=== PATIENT | female | born 2005 | race Caucasian/White ===

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

== ENCOUNTER 2024-02-29 13:35 | Emergency (ER) | payer OTHER, SELFPAY ==
[2024-02-29 13:45] VITALS: BP 105/52; PULSE 83; RESP 18; TEMP 37.2; O2SAT 99
--- NOTE | 2024-02-29 13:52 | ED.SKABFB ---
HPI - Skin/Abscess/Foreign Bdy General Chief complaint: Skin/Abscess/Foreign Body Stated complaint: left arm bug bite/itchy&swelling Time Seen by Provider: 02/29/24 13:52 Source: patient, RN notes reviewed and old records reviewed Mode of arrival: ambulatory Limitations: no limitations History of Present Illness HPI narrative: 18 year old female presents to [facility] care accompanied by friend with complaints of small raised itchy lesion with surrounding redness to distal left forearm that she noticed today at work. Patient reports that she thinks it is bug bite and is itchy. Patient denies being in [place], no known exposure to poison plants and no one else in family having complaints of similar symptoms, no fevers, chills or body aches. MD complaint: insect bite/sting (with surrounding redness) Location: LUE (distal forearm) Treatments prior to arrival: none Related Data Allergies Allergy/AdvReac Type Severity Reaction Status Date / Time No Known Allergies Allergy Verified 02/29/24 14:09 Review of Systems Review of Systems: CONSTITUTIONAL: Denies fever, chills, or sweats. CARDIOVASCULAR: Denies chest pain, .palpitations, or edema. RESPIRATORY: Denies cough or dyspnea. SKIN: Reports small raised lesion with surrounding redness, thinks is bug bite MUSCULOSKELETAL: Denies joint pain or myalgia. NEUROLOGIC: Denies headache, numbness, or weakness. All systems reviewed & are unremarkable except as noted in HPI and below PMFSH Past Medical History Medical History Acne Encounter for Depo-Provera contraception GERD (gastroesophageal reflux disease) Screen for STD (sexually transmitted disease) Surgical History Surgical History History of tonsillectomy Social History Social History Smoking status: Never smoker Alcohol intake: never Substance use: never Substance use type: does not use Lack of Transportation: No Lack of Food: Never True Current Housing: I Have Housing Concerned About Future Housing: No Difficulty Paying Gas/Electric Bills: No Difficulty Paying for Meds: No Currently Unemployed: No Education: High School Diploma/GED Difficulty w/ Childcare or Family Care: No Living arrangements: other Additional living arrangements comments: single Occupation/Education: occupation 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 There is no relevant family history pertinent to the presenting complaint Exam Narrative: GENERAL: Well-appearing, well-nourished, and in no acute distress. HEAD: Normocephalic, atraumatic. EYES: PERRLA, conjunctivae clear, and EOMI. ENT: Mucous membranes moist. Oropharynx without edema, erythema or lesions. NECK: Supple. No lymphadenopathy CHEST: Clear to auscultation. No respiratory distress.SAO2 99% on room air HEART: Regular rate and rhythm. SKIN: Warm, dry.?small center lesion which appears to be bug bite with surrounding redness total 2cm diameter itchy NEURO:? Alert and oriented x3. PSYCH: Normal mood and affect Course Course Emergency Course: Patient is aware of diagnosis, understands and agrees to treatment plan.? Anticipatory guidance given.? Patient agrees to follow-up as directed and is aware of reasons to seek care at the emergency department. Portions of this record may have been created with voice recognition software Level of Care: Express Care Visit Vital Signs Vital signs: Vital Signs Temperature 37.2 C 02/29/24 13:45 Pulse Rate 83 02/29/24 13:45 Respiratory Rate 18 02/29/24 13:45 Blood
== END 2024-02-29 14:15 | disposition home or self-care (01) ==
PROVIDERS: Emergency Provider Registered Nurse; PCP Family Medicine
DX: S50.862A Insect bite (nonvenomous) of left forearm, initial encounter (principal); W57.XXXA Bitten or stung by nonvenomous insect and other nonvenomous arthropods, initial encounter; K21.9 Gastro-esophageal reflux disease without esophagitis
CPT/HCPCS: 99213; G0463

== ENCOUNTER 2024-08-01 16:49 | Outpatient (CLI) | payer OTHER, SELFPAY ==
[2024-08-01 17:39] LABS: Beta HCG Quantitative < 2.39 mIU/ML
== END 2024-08-01 16:50 | disposition home or self-care (01) ==
LOC: ANHLAB 16:50
PROVIDERS: PCP Family Medicine; Visit Provider Student in an Organized Health Care Education/Training Program
DX: Z30.42 Encounter for surveillance of injectable contraceptive (principal)
CPT/HCPCS: 36415; 84702

== ENCOUNTER 2024-11-25 08:02 | Emergency (ER) | payer OTHER, SELFPAY ==
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
[2024-11-25 08:12] VITALS: BP 101/54; PULSE 76; RESP 20; TEMP 36.8; O2SAT 100
--- NOTE | 2024-11-25 08:29 | ED.GENADULT ---
HPI - General Adult General Chief complaint: Upper Respiratory Infection Stated complaint: head, throat, and stomach hurts Source: patient Mode of arrival: ambulatory Limitations: no limitations History of Present Illness HPI narrative: Patient presents for evaluation of sick symptoms since yesterday. Symptoms include sore throat, headache, and nausea. No fever, chills, cough, shortness of breath, vomiting, diarrhea. No recent sick contacts to her knowledge. She tried taking ibuprofen for her symptoms. She does not smoke. Related Data Allergies Allergy/AdvReac Type Severity Reaction Status Date / Time No Known Allergies Allergy Verified 02/29/24 14:09 Review of Systems Review of Systems: CONSTITUTIONAL: Denies fever, chills, or sweats. EYES: Denies visual changes, redness, or discharge. ENT: Reports sore throat. Denies rhinorrhea, congestion, or otalgia. CARDIOVASCULAR: Denies chest pain, palpitations, or edema. RESPIRATORY: Denies cough or dyspnea. GASTROINTESTINAL: Reports nausea. Denies abdominal pain, vomiting, or diarrhea. GENITOURINARY: Denies dysuria or hematuria. SKIN: Denies rash or itching. MUSCULOSKELETAL: Denies back pain, joint pain, or myalgia. NEUROLOGIC: Reports headache. Denies numbness, dizziness, or weakness. PSYCHIATRIC: Denies anxiety or depression. [facility] Past Medical History Medical History Encounter for Depo-Provera contraception Screen for STD (sexually transmitted disease) GERD (gastroesophageal reflux disease) Acne Surgical History Surgical History History of tonsillectomy Family History Family History (Updated 11/25/24 @ 08:30 by EMILI Mackey, VENKATESH) Mother Family history non-contributory Social History Social History Smoking status: Former smoker Alcohol intake: never Substance use: never Substance use type: does not use Lack of Transportation: No Lack of Food: Never True Current Housing: I Have Housing Concerned About Future Housing: No Difficulty Paying Gas/Electric Bills: No Difficulty Paying for Meds: No Currently Unemployed: No Education: High School Diploma/GED Difficulty w/ Childcare or Family Care: No Living arrangements: other Additional living arrangements comments: single Occupation/Education: occupation 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 HEAD: Normocephalic, atraumatic. EYES: PERRLA and EOMI. ENT: Nares clear, no rhinorrhea or epistaxis. Mucous membranes moist. Oropharynx without tonsillar hypertrophy exudate or other lesions. Bilateral TMs pearly becerra nonbulging NECK: Supple. No adenopathy or masses. No carotid bruits or JVD CHEST: Clear to auscultation. No respiratory distress. No wheezes rales or rhonchi HEART: Regular rate and rhythm. No murmur heard. Normal peripheral pulses. ABDOMEN: Soft, nontender, nondistended, normal active bowel sounds. EXTREMITIES: Normal range of motion. No edema. SKIN: Warm, dry, no rash. NEURO: No focal deficits. Alert and oriented x3. PSYCH: Normal mood and affect. Course Course Emergency Course: This is a 19-year-old female who presented for evaluation of sick symptoms. Strep, COVID, influenza were all negative. Exam is consistent with acute viral syndrome. Increase hydration. Qdea-gxk-[id number] agents for symptom management. She declined a prescription for antiemetics. She should follow-up with her primary care provider and go to the ER for worsening symptoms. Patient in agreement with plan of care Level of Care: Express Care Visit Vital Signs Vital signs: Vital Signs Temperature 36.8 C 11/25/24 08:12 Pulse Rate 76 11/25/24 08:12 Respiratory Rate 20 11/25/24 08:12 Blood Pressure 101/54 L 11/25/24 08:12 Pulse Oximetry 100 11/25/24 08:12 Oxygen Delivery Room Air 11/25/24 08:12 Temperature 36.8 C 11/25/24 08:12 Pulse Rate 76 11/25/24 08:12 Respiratory Rate 20 11/25/24 08:12 Blood Pressure 101/54 L 11/25/24 08:12 Pulse Oximetry 100 11/25/24 08:12 Oxygen Delivery Room Air 11/25/24 08:12 Medical Decision Making Vital Signs Vital Signs: Vital Signs Temperature 36.8 C 11/25/24 08:12 Pulse Rate 76 11/25/24 08:12 Respiratory Rate 20 11/25/24 08:12 Blood Pressure 101/54 L 11/25/24 08:12 Pulse Oximetry 100 11/25/24 08:12 Oxygen Delivery Room Air 11/25/24 08:12 Temperature 36.8 C 11/25/24 08:12 Pulse Rate 76 11/25/24 08:12 Respiratory Rate 20 11/25/24 08:12 Blood Pressure 101/54 L 11/25/24 08:12 Pulse Oximetry 100 11/25/24 08:12 Oxygen Delivery Room Air 11/25/24 08:12 Lab Data Labs: Lab Results 11/25/24 Range/Units 08:20 POC Influenza A Ag Negative (Negative) POC Influenza B Ag Negative (Negative) POC SARS CoV-2 Ag Negative (Negative) POC Grp A Strep Screen Negative (Negative) Discharge Plan Discharge Clinical Impression: Acute viral syndrome Patient Disposition: Home, Self-Care Condition: Stable Instructions: Antibiotic Form, Viral Syndrome (ED) Patient Language: Surinamese Prescriptions: No Action medroxyprogesterone [Depo-Provera] 150 mg/mL syringe 150 mg IM [id number] Qty: 1 0RF Follow-up/Referrals: Trever,Meek Moscoso MD [Primary Care Provider] - Time of Disposition: 08:41
[2024-11-25 08:37] LABS: EDINFLUASCREEN Negative (Negative); EDINFLUBSCREEN Negative (Negative); EDSTREPNEGPOS1 Negative (Negative)
[2024-11-25 08:38] LABS: EDCOVIDSCREEN Negative (Negative)
== END 2024-11-25 08:46 | disposition home or self-care (01) ==
PROVIDERS: Emergency Provider Nurse Practitioner; PCP Family Medicine
DX: B34.9 Viral infection, unspecified (principal); Z87.891 Personal history of nicotine dependence; Z20.822 Contact with and (suspected) exposure to COVID-19
CPT/HCPCS: 87081; 87426; 87804; 87880; 99213; G0463

== ENCOUNTER 2024-12-08 17:12 | Emergency (ER) | payer OTHER, SELFPAY ==
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
--- OUTSIDE RECORDS SUMMARY | 2024-12-08 17:14 | XMS_ITS | Clinical Summary ---
Author Organization [facility] Address [address] [place] [address] Care Team Providers Care Driver License Technician Name Role Phone No, Physician Unavailable Meek Perera MD Primary Care Provider [phone] Allergies No known active allergies Medications hydrOXYzine [...] by mouth daily 90 tablet 1 01/26/2024 5 Active Active Problems Problem Noted Date Diagnosed [...] F/u 1 month. I checked their [place] AFTER SCHOOL PROGRAM ASSISTANT sheet, and it was consistent with [...] Sep 2012 (Dr. Franz) and 11/24/12, 01/17/14 ([facility]) no snoring, generally restful sleep [...] 12/30/2023 Assessment & Plan (11/29/2023 12:27 PM OPHTHALMOLOGIST RETINA SPECIALIST): Ronda Maruicio an Marvin wrap applied. I told her [...] Type Department Care Team Description 09/19/2024 Telephone [facility] Medical Group Primary Care at [address] [address] Meek Perera MD Billing Question [...] on file Legal Sex Female 1:23 AM OPHTHALMOLOGIST RETINA SPECIALIST Gender Identity Not on file Sexual Orientation [...] CDT Respiratory Rate 16 11/25/2023 10:02 PM OPHTHALMOLOGIST RETINA SPECIALIST Oxygen Saturation 98% 01/26/2024 8:26 AM CDT [...] 05/03/2014 Meningococcal Vaccine Completed 12/06/2020, 015 Insurance [facility] [place] [address] [facility] [place] [address] [facility] [address] [place] [address] WORKERS COMPENSATION GENERIC Member Subscriber Plan / Payer (Ef fective 2023-Present) Name:Margoth Rice Relation to Subscriber:Employee Name:KAYLEEN (Home) Address: [address] [place] [address] Payer ID:[id number] Group ID:Not on file Type:WORKERS COMPENSATION Address: [address], [place] [id number] Care Teams Driver License Technician Relationship Specialty Start Date End Date Meek Perera MD [address] [address] PCP - General Family Medicine 12/16/22 No, Physician 09/07/19
--- OUTSIDE RECORDS SUMMARY | 2024-12-08 17:14 | XMS_ITS | CONTINUITY OF CARE DOCUMENT ---
Author Name raad jolantaceci Address Unknown Organization [facility] Address [address] [place] [address] Phone [phone] Care Team Providers Care Horse Groomer Name Role Phone Dontrell COX, Vel Unavailable [phone] DARIELA COX, PATRICIA Unavailable PATRICIA LYLE MD Unavailable [phone] PROBLEMS Condition Status Date Provider Notes covid active Vel Jon MD Screening active Vel Jon MD PFO;SMALL active Vel Jon MD FOUND ON SCREEN ECHO, NORMAL CORS ON ECHO CHILD Chest pain-type to be determined active Vel Jon MD Palpitations active Loreta Ventimiglia 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 ENCOUNTERS Date Type Provider Location Encounter Diag nosis - In-person encounter Office Visit Vel Jon MD [place] [facility] - In-person encounter Office Visit Vel Jon MD [place] [facility] Palpitations - In-person encounter Office Visit Vel Jon MD [place] [facility] covid 19creeningPFO; SMALLChest pain-type to be determined VITAL SIGNS Date Observation Value Provider Body Mass Index (Ratio) 24.14 kg/m2 Rusty Jon MD blood pressure, diastolic 78 mm[Hg] Dee Rosas blood pressure, systolic 104 mm[Hg] Karen Rosas oxygen saturation, oximetry 99 % [facility] pulse rate 68 /min [facility] respiratory rate E&M 12 /min [facility] weight E&M 132 [lb_av] [facility] height E&M 62 [in_i] [facility] blood pressure, cuff size regular [facility] Body Mass Index (Ratio) 24.14 kg/m2 Rusty Jon MD blood pressure, diastolic 73 mm[Hg] [facility] blood pressure, systolic 107 mm[Hg] [facility] oxygen saturation, oximetry 99 % [facility] pulse rate 68 /min [facility] respiratory rate E&M 12 /min [facility] weight E&M 132 [lb_av] [facility] height E&M 62 [in_i] [facility] blood pressure, cuff size regular [facility] weight E&M 134 [lb_av] Joelle Kunz Body Mass Index (Ratio) 24.51 kg/m2 Rusty Jon MD pulse rate 82 /min Michaela Head blood pressure, cuff size regular Keith Head blood pressure, diastolic 69 mm[Hg] Keith bitha Head blood pressure, systolic 96 mm[Hg] Omreo ithroxanne Head oxygen saturation, oximetry 98 % Michaela Head respiratory rate E&M 16 /min Michaela [facility] weight E&M 134 [lb_av] Michaela Head height E&M 62 [in_i] Michaela Head ALLERGIES No Known Drug Allergies HISTORY OF MEDICATION USE Medication Status Instructions Dates Provider Indications Com ments naproxen 500 mg tablet completed TAKE 1 TABLET BY MOUTH TWICE DAILY WITH FOOD - [facility] cyclobenzaprine 10 mg tablet completed Take 1 tablet by mouth once a day - [facility] SOCIAL HISTORY Date Observation Value Provider personal history of marijuana use no Loreta Ventimiglia [facility] drug use no Loreta Ventimig jonah [facility] alcohol use no Loreta Ventimig jonah [facility] cigarette use yes Loreta Ventimi glia [facility] smoking status Former smoker Loreta Venti miglia [facility] drug use no Loreta Ventimig jonah [facility] personal history of marijuana use no Loreta Ventimiglia [facility] alcohol use no Loreta Ventimig jonah [facility] cigarette use yes Loreta Ventimi glia [facility] smoking status Former smoker Loreta Venti miglia [facility] INSURANCE PROVIDERS Payer name Policy type / Coverage type [facility] ID 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 Loreta Cashglia [facility] Cardiology:no arrhythmia on tele monitor [facility] Cardiology:continues to have atypical type chest pain and SOB E quivocal stress test and stress echo ordered but denied by insurance w ill do 2D echo to look for any structural heart disease Will do CXR to look for any acute cardiopulmonary process w ill do labs to r/o underlying source for symptoms [facility] Cardiology:noted on pediatric echo reported as normal for age. [facility] Cardiology:associate d with chest pain and SOB w ill do tele monitor to r/o arrhythmia Loretaajith Castrejonglia [facility] Cardiology:Patient c ontinues to have reports of chest pain and SOB of unclear etiology S he reports associated palpitations as well S he had abnormal treadmill stress test but reported echo in 2019 that suggested a normal coronary anatomy g lucy that will plan for stress echo to r/o ischemia. w ill update labs to r/o anemia, vitamin deficiency or electrolyte disturbance contributing W ill do echo to look for any structural heart disease Loreta Sherifluioneydaquincy 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 Cardiology Vel Jon MD Cardiology Vel Jon MD Cardiology Vel Jon MD Cardiology:NEG EGFR N EG CHOL Vel Jon MD Date Name Vitamin D, 25-Hydrox y VITAMIN B12 Microalb/Creatinine Urine, Random HEMOGLOBIN A1c TSH, free T4, total T3 PROBNP, N TERMINAL IRON AND TOTAL IRON BINDING CAPACITY FERRITIN CBC (INCLUDES DIFF/P LT) COMPREHENSIVE METABO LIC PANEL, W/EGFR Lipoprotein (a) CXR- PA/Lat Complete Echo Microalb/Creatinine Urine, Random HEMOGLOBIN A1c Vitamin D, 25-Hydrox y VITAMIN B12 TSH, free T4, total T3 PROBNP, N TERMINAL IRON AND TOTAL IRON BINDING CAPACITY FERRITIN CBC (INCLUDES DIFF/P LT) Lipoprotein (a) CRP, high sensitivit y COMPREHENSIVE METABO LIC PANEL, W/EGFR LIPID PANEL Monitor - Telemetry (Mobile Cardiac) Stress Echo Complete Echo CXR- PA/Lat Stress Routine VITAMIN B12 Vitamin D, 25-Hydrox y IRON AND TOTAL IRON BINDING CAPACITY FERRITIN CBC (INCLUDES DIFF/P LT) Microalb/Creatinine Urine, Random CRP, high sensitivit y Lipoprotein (a) HISTORY OF PROCEDURES Procedure Date Procedure Name Provider Procedure Notes S tatus EKG Vel Jon MD complete d
--- OUTSIDE RECORDS SUMMARY | 2024-12-08 17:17 | XMS_ITS | CONTINUITY OF CARE DOCUMENT ---
Author Name raad jolantaceci Address Unknown Organization [facility] Address [address] [place] [address] Phone [phone] Care Team Providers Care Tissue Packer Name Role Phone Dontrell COX, Vel Unavailable DARIELA COX, PATRICIA Unavailable [phone] PATRICIA LYLE MD Unavailable PROBLEMS Condition Status Date Provider Notes covid active Vel Jon MD Screening active Vel Jon MD PFO;SMALL active Vel Jon MD FOUND ON SCREEN ECHO, NORMAL CORS ON ECHO CHILD Chest pain-type to be determined active Vel Jon MD Palpitations active Loreta 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 Date Type Provider Location Encounter Diag nosis - In-person encounter Office Visit Vel Jon MD [place] [facility] - In-person encounter Office Visit Vel Jon MD [place] [facility] Palpitations - In-person encounter Office Visit Vel Jon MD [place] [facility] covid 19creeningPFO; SMALLChest pain-type to be determined VITAL SIGNS Date Observation Value Provider Body Mass Index (Ratio) 24.14 kg/m2 Rusty Jon MD blood pressure, diastolic 78 mm[Hg] Dee Rosas blood pressure, systolic 104 mm[Hg] Karen Rosas oxygen saturation, oximetry 99 % [facility] pulse rate 68 /min [facility] respiratory rate E&M 12 /min [facility] weight E&M 132 [lb_av] [facility] height E&M 62 [in_i] [facility] blood pressure, cuff size regular [facility] Body Mass Index (Ratio) 24.14 kg/m2 Rusty Jon MD blood pressure, diastolic 73 mm[Hg] [facility] blood pressure, systolic 107 mm[Hg] [facility] oxygen saturation, oximetry 99 % [facility] pulse rate 68 /min [facility] respiratory rate E&M 12 /min [facility] weight E&M 132 [lb_av] [facility] height E&M 62 [in_i] [facility] blood pressure, cuff size regular [facility] weight E&M 134 [lb_av] Joelle Kunz Body Mass Index (Ratio) 24.51 kg/m2 Rusty Jon MD pulse rate 82 /min Michaela Head blood pressure, cuff size regular Keith Head blood pressure, diastolic 69 mm[Hg] Keith bitha Head blood pressure, systolic 96 mm[Hg] Omero ithroxanne Head oxygen saturation, oximetry 98 % Michaela [facility] respiratory rate E&M 16 /min [facility] weight E&M 134 [lb_av] Michaela Head height E&M 62 [in_i] Michaela Head ALLERGIES No Known Drug Allergies HISTORY OF MEDICATION USE Medication Status Instructions Dates Provider Indications Com ments naproxen 500 mg tablet completed TAKE 1 TABLET BY MOUTH TWICE DAILY WITH FOOD - [facility] cyclobenzaprine 10 mg tablet completed Take 1 tablet by mouth once a day - [facility] SOCIAL HISTORY Date Observation Value Provider personal history of marijuana use no Loreta Ventimiglia [facility] drug use no Loreta Ventimig jonah [facility] alcohol use no Loreta Ventimig jonah [facility] cigarette use yes Loreta Ventimi glia [facility] smoking status Former smoker Loreta Venti miglia [facility] drug use no Loreta Ventimig jonah [facility] personal history of marijuana use no Loreta Ventimiglia [facility] alcohol use no Loreta Ventimig jonah [facility] cigarette use yes Loreta Ventimi glia [facility] smoking status Former smoker Loreta Venti miglia [facility] INSURANCE PROVIDERS Payer name Policy type / Coverage type [facility] ID Verific[employer] [id number] ADVANCE DIRECTIVES Name Date DISCUSSED - NO DECISION MADE TREATMENT PLAN Date Name Performer Cardiology: n oted on pediatric echo reported as normal for age. Loreta Cashglia [facility] Cardiology:no arrhythmia on tele monitor [facility] Cardiology:continues to have atypical type chest pain and SOB E quivocal stress test and stress echo ordered but denied by insurance w ill do 2D echo to look for any structural heart disease Will do CXR to look for any acute cardiopulmonary process w ill do labs to r/o underlying source for symptoms [facility] Cardiology:noted on pediatric echo reported as normal for age. [facility] Cardiology:associate d with chest pain and SOB w ill do tele monitor to r/o arrhythmia Loretaajith Castrejonglia [facility] Cardiology:Patient c ontinues to have [...] for any structural heart disease Loreta Sherifluioneydaquincy CORPORATE MANAGER Cardiology Vel Jon MD Cardiology Vel Jon [...]
[2024-12-08 17:18] VITALS: BP 109/56; PULSE 81; RESP 18; TEMP 36.6; O2SAT 100
--- NOTE | 2024-12-08 17:21 | ED_ITS ---
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 Was unable to get wound to stop bleeding. Happened approx. 30 minutes prior to arrival. CMS intact. All systems reviewed and negative except as noted above. Related Data Allergies Allergy/AdvReac Type Severity Reaction Status Date / Time No Known Allergies Allergy Verified 02/29/24 14:09 Review of Systems Review of Systems: CONSTITUTIONAL: Denies fever, chills, or sweats. EYES: Denies visual changes, redness, or discharge. ENT: Denies rhinorrhea, congestion, sore throat, or otalgia. CARDIOVASCULAR: Denies chest pain, palpitations, or edema. RESPIRATORY: Denies cough or dyspnea. GASTROINTESTINAL: Denies abdominal pain, nausea, vomiting, or diarrhea. GENITOURINARY: Denies dysuria or hematuria. SKIN: Denies rash or itching. reports skin avulsion to left thumb. MUSCULOSKELETAL: Denies back pain, joint pain, or myalgia. NEUROLOGIC: Denies headache, numbness, or weakness. PSYCHIATRIC: Denies anxiety or depression. All other systems reviewed are negative, except as documented in HPI. [facility] Past Medical History Medical History Encounter for Depo-Provera contraception Screen for STD (sexually transmitted disease) GERD (gastroesophageal reflux disease) Acne Surgical History Surgical History History of tonsillectomy Family History Family History (Updated 11/25/24 @ 08:30 by EMILI Mackey, VENKATESH) Mother Family history non-contributory Social History Social History Smoking status: Former smoker Alcohol intake: never Substance use: never Substance use type: does not use Lack of Transportation: No Lack of Food: Never True Current Housing: I Have Housing Concerned About Future Housing: No Difficulty Paying Gas/Electric Bills: No Difficulty Paying for Meds: No Currently Unemployed: No Education: High School Diploma/GED Difficulty w/ Childcare or Family Care: No Living arrangements: other Additional living arrangements comments: single Occupation/Education: occupation 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 There is no relevant family history pertinent to the presenting complaint. Exam Narrative: GENERAL: This is a well-nourished, well-developed patient, in no apparent distress. HEAD: normocephalic, atraumatic. EYES: PERRL. Sclera clear/white. Vision is grossly intact. EARS: External ears normal NOSE: External nose normal NECK: Neck supple, non-tender without lymphadenopathy, masses or thyromegaly. CARDIOVASCULAR: Regular rate and rhythm without murmurs, gallops, or rubs. RESPIRATORY: Clear to auscultation. Breath sounds equal bilaterally. No wheezes, rales, or rhonchi. SKIN: warm, Dry, intact with no suspicious lesions or rash, good texture and turgor. skin avulsion to L thumb, less that 1 cm diameter. small amount of active bleeding. NEURO: awake, alert, and oriented to person, place and time. There were no o bvious focal neurologic abnormalities. EXTREMITIES: No joint tenderness, effusion, or edema noted. Course Course Level of Care: Express Care Visit Vital Signs Vital signs: Vital Signs Temperature 36.6 C 12/08/24 17:18 Pulse Rate 81 12/08/24 17:18 Respiratory Rate 18 12/08/24 17:18 Blood Pressure 109/56 L 12/08/24 17:18 Pulse Oximetry 100 12/08/24 17:18 Oxygen Delivery Room Air 12/08/24 17:18 Temperature 36.6 C 12/08/24 17:18 Pulse Rate 81 12/08/24 17:18 Respiratory Rate 18 12/08/24 17:18 Blood Pressure 109/56 L 12/08/24 17:18 Pulse Oximetry 100 12/08/24 17:18 Oxygen Delivery Room Air 12/08/24 17:18 Reviewed Procedures Other Procedure Procedure 1: Other Procedure: surgicel applied to skin avulsion of L thumb. tube gauze dressing placed. MDM - Wound/Laceration MDM Narrative Medical decision making narrative: Please be advised this is a medical document. It is intended for [id number] communication. It is written in medical language and may contain unfamiliar abbreviations or verbiage. Medical documents are intended to carry relevant information, facts as evident, and the clinical opinion of the practitioner at the time of the encounter. This report may have been done utilizing a voice recognition system. Attempts have been made to correct errors. However, there may be uncorrected grammatical, spelling, and recognition errors present. The file time of this note does not necessarily represent the time of service. Discharge Plan Discharge Clinical Impression: Avulsion of skin of left thumb Qualifiers: Encounter type: initial encounter Qualified Code(s): S61.002A - Unspecified open wound of left thumb without damage to nail, initial encounter Patient Disposition: Home, Self-Care Condition: Stable Instructions: Skin Avulsion (ED) Additional Instructions: Remove medicated gauze in 24 to 48 hours by running under warm water. Keep clean and dry. See your doctor as needed. Patient Language: Surinamese Prescriptions: No Action medroxyprogesterone [Depo-Provera] 150 mg/mL syringe 150 mg IM [id number] Qty: 1 0RF Follow-up/Referrals: Trever,Meek Moscoso MD [Primary Care Provider] - Stand Alone Forms: Work/School Release IP Time of Disposition: 17:43
== END 2024-12-08 17:51 | disposition home or self-care (01) ==
PROVIDERS: Emergency Provider Nurse Practitioner Family; PCP Family Medicine
DX: S61.002A Unspecified open wound of left thumb without damage to nail, initial encounter (principal); Z87.891 Personal history of nicotine dependence; W27.4XXA Contact with kitchen utensil, initial encounter
CPT/HCPCS: 99212; G0463

== ENCOUNTER 2025-03-06 11:41 | Emergency (ER) | payer OTHER, SELFPAY ==
--- NOTE | ~2025-03-06 | XR_ITS ---
EXAMINATION: XR chest 2V 03/06/2025 13:15 INDICATION: Shortness of breath and chest pain PROCEDURE: 2 view chest COMPARISON: 12/15/2023 FINDINGS: The lungs are clear. The cardiomediastinal silhouette is within normal limits. There are no pleural effusions. There is no pneumothorax suspected. IMPRESSION: 1: NO ACUTE CARDIOPULMONARY DISEASE. Reviewed, dictated and finalized at location A.
[2025-03-06 11:45] VITALS: BP 119/79; PULSE 78; RESP 18; TEMP 37.1; O2SAT 95
--- OUTSIDE RECORDS SUMMARY | 2025-03-06 11:45 | XMS_ITS | Referral Summary ---
Author Organization [facility] Address [address] [place] [address] Care Team Providers Care Adult Basic Education Instructor Name Role Phone No, Physician Unavailable Meek Perera MD Primary Care Provider Encounters Date Type Department Care Team Description 12/28/2024 Results Follow-Up [facility] Medical [facility] Primary Care at [address] [address] Meek Perera MD XR Chest Pa Lateral 2 Views 12/28/2024 Telephone [facility] Primary Care at [address] [address] Meek Perera MD Pa for Methylphenidate 18mg ER 12/28/2024 10:30 AM CDT Ancillary Procedure [facility] Imaging at [address] [address] 12/28/2024 9:45 AM CDT Office Visit [facility] Primary Care at [address] [address] Meek Perera MD CHASE (generalized anxiety disorder) (Primary Dx); Encounter for administration of vaccine; Chronic pain of scapula; Attention deficit hyperactivity disorder (ADHD), predominantly inattentive type; Winging of scapula; Other chest pain from Last 3 Months Allergies No known active allergies Medications sertraline (ZOLOFT) 50 mg tabletIndications: Anxiety with Depression,General ized Anxiety Disorder Take 0.5 tablets (25 mg total) by mouth daily for 7 days, THEN 1 tablet (50 mg total) daily. 34 tablet 5 Active hydrOXYzine (ATARAX) 25 mg tabletIndications: anxiety Take 1 tablet (25 mg total) by mouth 3 (three) times a day as needed for anxiety 30 tablet 1 5 Active methylphenidate ER (Concerta) 18 mg CR tabletIndications: Attention-Deficit Hyperactivity Disorder Take 1 tablet (18 mg total) by mouth every morning 30 tablet 5 Active Active Problems Problem Noted Date Diagnosed Date Winging of scapula 12/28/2024 Palpitations 08/16/2024 Chest pain 07/06/2024 Influenza due to unidentifie d influenza virus with other respiratory manifestations 07/06/2024 Presence of other cardiac implants and grafts Overview (12/28/2024): FOUND ON SCREEN ECHO, NORMAL CORS ON ECHO CHILD Attention deficit hyperactiv ity disorder (ADHD), predominantly [...] sertraline. F/u 1 month. I checked their [place] ANCILLARY SPECIALIST sheet, and it was consistent with prescribed [...] Sep 2012 (Dr. Franz) and 11/24/12, 01/17/14 (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 I [...] Intramuscular 08/17/2018,08/12/2016 Influenza, Split 08/18/2010,07/03/2009, 8 Influenza, Trivalent, Preser vative Free, Intramuscular 12/28/2024 Influenza, Unspecified 12/30/2023(Deferr ed: Patient Refused),11/29/2023(Deferred: Patient Refused),10/05/2023(Deferred: Patient Refused),10/05/2022(Deferred: Patient Refused),10/04/2022(Deferred: Patient Refused),10/04/2022(Deferred: Patient Refused),10/04/2021(Deferred: Patient [...] points, staff should administer the PHQ-9) 0 12/28/2024 Personal Safety Answer Date Recorded Have you [...] on file Legal Sex Female 1:23 AM STOREROOM SUPERVISOR Gender Identity Not on file Sexual Orientation Not on file 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, 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 Not on file Not on fi le Last Filed Vital Signs Vital Sign Reading Time Taken Comments Blood Pressure 106/64 12/28/2024 9:50 AM CDT Pulse 67 12/28/2024 9:50 AM CDT Temperature 37.2 C (98.9 F) 12/28/2024 9:50 AM CDT Respiratory Rate 16 12/28/2024 9:50 AM CDT Oxygen Saturation 98% 12/28/2024 9:50 AM CDT Inhaled Oxygen Concentration - - Weight 58.1 kg (128 lb) 12/28/2024 9:50 AM CDT Height 157.5 cm (5' 2) 12/28/2024 9:50 AM CDT Body Mass Index 23.41 12/28/2024 9:50 AM CDT Plan of Treatment Not on file Procedures Procedure Name Priority Date/Time Associated Diagnosis Comments XR CHEST PA LATERAL 2 VIEWS Routine 12/28/2024 10:41 AM CDT Chronic pain of scapula Other chest pain from Last 3 Months Results * XR Chest Pa Lateral 2 Views (12/28/2024 10:41 AM CDT) Anatomical Region Laterality Modality Body, Chest N/A Digital Radiogra phy 12/28/2024 10:4 4 AM CDT Narrative 12/28/2024 10:46 AM CDT EXAM DESCRIPTION: XR CHEST PA LATERAL 2 VIEWS REASON FOR STUDY: Pt complains of chronic right scapular pain, worsening over time. No surgery to heart, lungs, or chest. Non-smoker TECHNIQUE: 2 radiographic view(s) of the chest. COMPARISON: 06/06/2022 FINDINGS: LUNGS: There is minimal scarring within the right upper lobe. No airspace consolidation is noted. No effusions are noted. HEART/MEDIASTINUM: Cardiac silhouette normal in size. Mediastinal and hilar contours appear normal. LINES/TUBES: None. BONES: No acute osseous abnormality. IMPRESSION: 1. No acute disease. THIS IS AN ELECTRONICALLY VERIFIED FINAL REPORT 12/28/2024 10:46 AM - Electronically signed by Stoney Carr M.D. SS T: Report ID: [id number] Reading Location: [id number] Procedure Note Stoney Carr MD - 12/28/2024 EXAM DESCRIPTION: XR CHEST PA LATERAL 2 VIEWS REASON FOR STUDY: Pt complains of chronic right scapular pain, worsening over time. Nosurgery to heart, lungs, or chest. Non-smoker TECHNIQUE: 2 radiographic view(s) of the chest. COMPARISON: 06/06/2022 FINDINGS: LUNGS: There is minimal scarring within the right upper lobe.No airspace consolidation is noted. No effusions are noted. HEART/MEDIASTINUM: Cardiac silhouette normal in size. Mediastinal andhilar contours appear normal. LINES/TUBES: None. BONES: No acute osseous abnormality. IMPRESSION: 1. No acute disease. THIS IS AN ELECTRONICALLY VERIFIED FINAL REPORT 12/28/2024 10:46 AM - Electronically signed by Stoney Carr M.D. SS T: Report ID: [id number] Reading Location: [place] [address] Meek Perera MD IMG XR PROCEDURES Final Res ult from Last 3 Months Insurance [facility] [place] [address] [facility] [address] [place] [address] [facility] [address] [place] [address] [facility] [employer] [place] [address] WORKERS COMPENSATION GENERIC Member Subscriber Plan / Payer (Ef fective 2023-Present) Name:Margoth Rice Relation to Subscriber:Employee Name:KAYLEEN (Home) Address: [address] [place] [address] Payer ID:[id number] Group ID:Not on file Type:WORKERS COMPENSATION Address: [address], [place] [id number] Care Teams Adult Basic Education Instructor Relationship Specialty Start Date End Date Meek Perera MD [address] [place] [id number] PCP - General Family Medicine 12/16/22 No, Physician 09/07/19
--- OUTSIDE RECORDS SUMMARY | 2025-03-06 11:45 | XMS_ITS | CONTINUITY OF CARE DOCUMENT ---
Author Name raad shankar Address Unknown Organization [facility] Address [address] [place] [address] Phone [phone] Care Team Providers Care Club Former Name Role Phone Dontrell COX, Vel Unavailable [phone] DARIELA COX, PATRICIA Unavailable PATRICIA LYLE MD Unavailable PROBLEMS Condition Status Date Provider Notes covid active Vel Jon MD Screening active Vel Jon MD PFO;SMALL active Vel Jon MD FOUND ON SCREEN ECHO, NORMAL CORS ON ECHO CHILD Chest pain-type to be determined active Vel Jon MD Palpitations active Loreta Ventimiglia 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 TRADES 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 ENCOUNTERS Date Type Provider Location Encounter Diag nosis - In-person encounter Office Visit Vel Jon MD [place] [facility] - In-person encounter Office Visit Vel Jon MD [place] [facility] Palpitations - In-person encounter Office Visit Vel Jon MD [place] [facility] covid 19creeningPFO; SMALLChest pain-type to be determined VITAL SIGNS Date Observation Value Provider Body Mass Index (Ratio) 24.14 kg/m2 Rusty Jon MD blood pressure, diastolic 78 mm[Hg] Dee Rosas blood pressure, systolic 104 mm[Hg] Karen Rosas oxygen saturation, oximetry 99 % [facility] pulse rate 68 /min [facility] respiratory rate E&M 12 /min [facility] weight E&M 132 [lb_av] [facility] height E&M 62 [in_i] [facility] blood pressure, cuff size regular [facility] Body Mass Index (Ratio) 24.14 kg/m2 Rusty Jon MD blood pressure, diastolic 73 mm[Hg] [facility] blood pressure, systolic 107 mm[Hg] [facility] oxygen saturation, oximetry 99 % [facility] pulse rate 68 /min [facility] respiratory rate E&M 12 /min [facility] weight E&M 132 [lb_av] [facility] height E&M 62 [in_i] [facility] blood pressure, cuff size regular [facility] weight E&M 134 [lb_av] Joelle Kunz [...] BY MOUTH TWICE DAILY WITH FOOD - [facility] cyclobenzaprine 10 mg tablet completed Take 1 tablet by mouth once a day - [facility] SOCIAL HISTORY Date Observation Value Provider personal history of marijuana use no Loreta Ventimiglia [facility] drug use no Loreta Ventimig jonah [facility] alcohol use no Loreta Ventimig jonah [facility] cigarette use yes Loreta Ventimi glia [facility] smoking status Former smoker Loreta Venti miglia [facility] drug use no Loreta Ventimig jonah [facility] personal history of marijuana use no Loreta Ventimiglia [facility] alcohol use no Loreta Ventimig jonah [facility] cigarette use yes Loreta Ventimi glia [facility] smoking status Former smoker Loreta Venti miglia [facility] INSURANCE PROVIDERS Payer name Policy type / Coverage type [facility] ID [employer] [id number] ADVANCE DIRECTIVES Name Date DISCUSSED - NO DECISION MADE TREATMENT PLAN Date Name Performer Cardiology: n oted on pediatric echo reported as normal for age. Loreta Cashglia [facility] Cardiology:no arrhythmia on tele monitor [facility] Cardiology:continues to have atypical type chest pain and SOB E quivocal stress test and stress echo ordered but denied by insurance w ill do 2D echo to look for any structural heart disease Will do CXR to look for any acute cardiopulmonary process w ill do labs to r/o underlying source for symptoms [facility] Cardiology:noted on pediatric echo reported as normal for age. [facility] Cardiology:associate d with chest pain and SOB w ill do tele monitor to r/o arrhythmia Loretaajith Castrejonglia [facility] Cardiology:Patient c ontinues to have reports of [...] for any structural heart disease Loreta Sherifluioneydaquincy [employer] WORK[employer] Cardiology Vel Jon MD Cardiology Vel Jon [...]
--- OUTSIDE RECORDS SUMMARY | 2025-03-06 11:45 | XMS_ITS | Clinical Summary ---
Author Organization [facility] Address [address] [place] [address] Care Team Providers Care General Distillery Worker Name Role Phone No, Physician Unavailable Meek Perera MD Primary Care Provider Allergies No known active allergies Medications sertraline [...] F/u 1 month. I checked their [place] LASER PRINTING OPERATOR sheet, and it was consistent with prescribed [...] Sep 2012 (Dr. Franz) and 11/24/12, 01/17/14 ([facility]) no snoring, generally restful sleep FH [...] 12/30/2023 Assessment & Plan (11/29/2023 12:27 PM NEW ACCOUNTS REPRESENTATIVE): Silvadene, Telfa an Marvin wrap applied. I [...] Date Type Department Care Team Description 12/28/2024 10:30 AM CDT Ancillary Procedure [facility] Imaging at [address] [address] 12/28/2024 9:45 AM CDT Office Visit [facility] Primary Care at [address] [address] Meek Perera MD CHASE (generalized anxiety disorder) (Primary Dx); Encounter for administration of vaccine; Chronic pain of scapula; Attention deficit hyperactivity disorder (ADHD), predominantly inattentive type; Winging of scapula; Other chest pain 12/28/2024 Results Follow-Up [facility] Primary Care at [place] [id number] Meek Perera MD XR Chest Pa Lateral 2 Views 12/28/2024 Telephone [facility] Primary Care at [address] [address] Meek Perera MD Pa for Methylphenidate 18mg ER from Last 3 Months Immunizations Immunization Administration [...] on file Legal Sex Female 1:23 AM NEW ACCOUNTS REPRESENTATIVE Gender Identity Not on file Sexual Orientation [...] 12/28/2024 9:50 AM CDT Plan of Treatment Health Maintenance Due Date Last Done Comments Hepatitis C Screening 2004 Meningococcal B Vaccine (2 o f 2 - Trumenba SCDM 2-dose series) 06/08/2021 12/06/2020 Regular Well Visit/Exam 18-64 12/17/2023 12/16/2022 DTaP/Tdap/Td Vaccine (7 - Td or Tdap) 06/03/2025 06/03/2015, 01/16/2009, 12/01/2005, Additional history exists Depression Screening 12/28/2025 12/28/2024, 01/26/2024, 12/30/2023, Additional history exists Hepatitis B Screening Completed 2004 , 2004, 2004 Pneumococcal vaccine <65 Completed 006, 2004, 2004, Additional history exists Varicella Vaccines Completed 02/12/2009, 06/09/2005 HPV Vaccines Completed 11/05/2014, 11/2013, 05/03/2014 Meningococcal Vaccine Completed 12/06/2020, 015 Influenza Vaccine Completed 12/28/2024, , 08/12/2016, Additional history exists Procedures Procedure Name Priority Date/Time Associated Diagnosis [...] - Electronically signed by Stoney Carr M.D. T: Report ID: [id number] Reading Location: [id number] Procedure Note Stoney Carr MD - 12/28/2024 [...] Stoney Carr M.D. SS T: Report ID: [id number] Reading Location: [place] [address] Meek Perera MD IMG XR PROCEDURES Final Res ult from Last [address] [place] [address] [facility] [place] [address] [place] [id number] [facility] WORKERS COMPENSATION GENERIC WORKERS COMPENSATION GENERIC Care Teams General Distillery Worker Relationship Specialty Start Date End Date Meek Perera MD [address] [place] [address] PCP - General Family Medicine 12/16/22 No, Physician 09/07/19
[2025-03-06 11:56] VITALS: O2SAT 99
--- OUTSIDE RECORDS SUMMARY | 2025-03-06 12:09 | XMS_ITS | Referral Summary ---
Author Organization [facility] Address [address] [place] [address] Care Team Providers Care Provider Network Manager Name Role Phone No, Physician Unavailable Meek Perera MD Primary Care Provider [phone] Encounters Date Type Department Care Team Description 12/28/2024 Results Follow-Up [facility] Primary Care at [address] [address] Meek Perera MD XR Chest Pa Lateral 2 Views 12/28/2024 Telephone [facility] Primary Care at [address] [address] Meek Perera MD Pa for Methylphenidate 18mg ER 12/28/2024 10:30 AM CDT Ancillary Procedure [facility] Imaging at [address] [address] 12/28/2024 9:45 AM CDT Office Visit [facility] Primary Care at [address] [address] Meek Perera MD CHASE (generalized [...] sertraline. F/u 1 month. I checked their [place] SINGLE PASS SOIL STABILIZER OPERATOR sheet, and it was consistent with [...] 12/30/2023 Assessment & Plan (11/29/2023 12:27 PM TOP IRONER): Silvadene, Telfa an Marvin wrap applied. I [...] on file Legal Sex Female 1:23 AM TOP IRONER Gender Identity Not on file Sexual Orientation [...] Stoney Carr M.D. SS T: Report ID: [id number] Reading Location: [id number] Procedure Note Stoney Carr MD - 12/28/2024 [...] Stoney Carr M.D. SS T: Report ID: [id number] Reading Location: [place] [address] Meek Perera MD IMG XR PROCEDURES Final Res ult from Last [address] [facility] [place] [address] [facility] [place] [address] [facility] [address] [facility] WORKERS COMPENS[place] [address] WORKERS COMPENSATION GENERIC Member Subscriber Plan / Payer (Ef fective 2023-Present) Name:Margoth Rice Relation to Subscriber:Employee Name:KAYLEEN (Home) Address: [address] [place] [address] Payer ID:[id number] Group ID:Not on file Type:WORKERS COMPENSATION Address: [address], [place] [id number] Care Teams Provider Network Manager Relationship Specialty Start Date End Date Meek Perera MD [address] [place] [id number] PCP - General Family Medicine 12/16/22 No, Physician 09/07/19
--- OUTSIDE RECORDS SUMMARY | 2025-03-06 12:09 | XMS_ITS | CONTINUITY OF CARE DOCUMENT ---
Author Name raad shankar Address Unknown Organization [facility] Address [address] [place] [address] Phone [phone] Care Team Providers Care Rn Travel Name Role Phone Dontrell COX, Vel Unavailable DARIELA COX, PATRICIA Unavailable PATRIICA LYLE MD Unavailable PROBLEMS Condition Status Date Provider Notes covid active Vel Jon MD Screening active Vel Jon MD PFO;SMALL active Vel Jon MD FOUND ON SCREEN ECHO, NORMAL CORS ON ECHO CHILD Chest pain-type to be determined active Vel oJn MD Palpitations active Loreta Ventimiglia PROCUREMENT ASSISTANT ENCOUNTERS Date Type Provider Location Encounter Diag nosis - In-person encounter Office Visit Vel Jon MD [place] [facility] - In-person encounter Office Visit Vel Jon MD [place] [facility] Palpitations - In-person encounter Office Visit Vel Jon MD [place] [facility] covid 19creeningPFO; SMALLChest pain-type to be determined VITAL SIGNS Date Observation Value Provider Body Mass Index (Ratio) 24.14 kg/m2 Rusty Jon MD blood pressure, diastolic 78 mm[Hg] Dee Rosas blood pressure, systolic 104 mm[Hg] Karen Rosas oxygen saturation, oximetry 99 % [facility] pulse rate 68 /min [facility] respiratory rate E&M 12 /min [facility] weight E&M 132 [lb_av] [facility] height E&M 62 [in_i] [facility] blood pressure, cuff size regular [facility] Body Mass Index (Ratio) 24.14 kg/m2 Rusty Jon MD blood pressure, diastolic 73 mm[Hg] [facility] blood pressure, systolic 107 mm[Hg] [facility] oxygen saturation, oximetry 99 % [facility] pulse rate 68 /min [facility] respiratory rate E&M 12 /min [facility] weight E&M 132 [lb_av] [facility] height E&M 62 [in_i] [facility] blood pressure, cuff size regular [facility] weight E&M 134 [lb_av] Joelle [...] MOUTH TWICE DAILY WITH FOOD - [facility] cyclobenzaprine 10 mg tablet completed Take 1 tablet by mouth once a day - [facility] SOCIAL HISTORY Date Observation Value Provider personal history of marijuana use no Loreta Ventimiglia [facility] drug use no Loreta Ventimig jonah [facility] alcohol use no Loreta Ventimig jonah [facility] cigarette use yes Loreta Ventimi glia [facility] smoking status Former smoker Loreta Venti miglia [facility] drug use no Loreta Ventimig jonah [facility] personal history of marijuana use no Loreta Ventimiglia [facility] alcohol use no Loreta Ventimig jonah [facility] cigarette use yes Loreta Ventimi glia [facility] smoking status Former smoker Loreta Venti miglia [facility] INSURANCE PROVIDERS Payer name Policy type / Coverage type [facility] ID [employer] [id number] ADVANCE DIRECTIVES Name Date DISCUSSED - NO DECISION MADE TREATMENT PLAN Date Name Performer Cardiology: n oted on pediatric echo reported as normal for age. Loreta Cashglia [facility] Cardiology:no arrhythmia on tele monitor [facility] Cardiology:continues to have atypical type chest pain and SOB E quivocal stress test and stress echo ordered but denied by insurance w ill do 2D echo to look for any structural heart disease Will do CXR to look for any acute cardiopulmonary process w ill do labs to r/o underlying source for symptoms [facility] Cardiology:noted on pediatric echo reported as normal for age. [facility] Cardiology:associate d with chest pain and SOB w ill do tele monitor to r/o arrhythmia Loretaajith Castrejonglia [facility] Cardiology:Patient c ontinues to have reports [...] for any structural heart disease Loreta Sherifluioneydaquincy PROCUREMENT ASSISTANT Cardiology Vel Jon MD Cardiology Vel Jon [...]
--- OUTSIDE RECORDS SUMMARY | 2025-03-06 12:09 | XMS_ITS | Clinical Summary ---
Author Organization [facility] Address [address] [place] [address] Care Team Providers Care Electrotype Molder Name Role Phone No, Physician Unavailable Meek [...] F/u 1 month. I checked their [place] ENVIRONMENTAL REMEDIATION ENGINEER sheet, and it was consistent with prescribed [...] Sep 2012 (Dr. Franz) and 11/24/12, 01/17/14 ([facility]) no snoring, generally restful sleep [...] 12/30/2023 Assessment & Plan (11/29/2023 12:27 PM EXPERIENCE DESIGN DIRECTOR): Silvadene, Telfa an Marvin wrap applied. I [...] Description 12/28/2024 10:30 AM CDT Ancillary Procedure [facility] Imaging at [address] [address] 12/28/2024 9:45 AM CDT Office Visit [facility] Primary Care at [address] [address] Meek Perera MD CHASE (generalized anxiety disorder) (Primary Dx); Encounter for administration of vaccine; Chronic pain of scapula; Attention deficit hyperactivity disorder (ADHD), predominantly inattentive type; Winging of scapula; Other chest pain 12/28/2024 Results Follow-Up [facility] Primary Care at [place] [phone] Meek Perera MD XR Chest Pa Lateral 2 Views 12/28/2024 Telephone [facility] Primary Care at [address] [address] Meek Perera MD Pa for [...] on file Legal Sex Female 1:23 AM EXPERIENCE DESIGN DIRECTOR Gender Identity Not on file Sexual Orientation [...] by Stoney Carr M.D. T: Report ID: [id number] Reading Location: [id number] Procedure Note Stoney Carr MD - 12/28/2024 [...] Stoney Carr M.D. SS T: Report ID: [id number] Reading Location: [place] [address] Meek Perera MD IMG XR PROCEDURES Final Res ult from Last [address] [place] [address] [facility] [place] [place] [address] [facility] WORKERS COMPENSATION GENERIC WORKERS COMPENSATION GENERIC Care Teams Electrotype Molder Relationship Specialty Start Date End Date Meek Perera MD [address] [facility] [address] [place] [address] PCP - General Family Medicine 12/16/22 No, Physician 09/07/19
--- NOTE | 2025-03-06 12:19 | ED.GENADULT ---
HPI - General Adult General Chief complaint: Upper Respiratory Infection Stated complaint: COUGH,SOB Time Seen by Provider: 03/06/25 12:00 History of Present Illness HPI narrative: 19-year-old female present to the emergency department for evaluation for intermittent shortness of breath. Patient states that she did quit vaping approximately 8 months ago but does still continue to smoke marijuana. Patient states that she does smoke floor. Patient reports she did have some possible asthma when she was a child but reports that she grew out of it. Related Data Home Medications ?Medication ?Instructions ?Recorded ?Confirmed ?Last Taken ?Type hydroxyzine HCl 25 mg tablet 25 mg PO Q8H PRN anxiety 03/06/25 03/06/25 Unknown History sertraline 50 mg tablet 50 mg PO Q24H 03/06/25 03/06/25 Unknown History Allergies Allergy/AdvReac Type Severity Reaction Status Date / Time No Known Allergies Allergy Verified 03/06/25 11:41 Review of Systems Review of Systems: All systems reviewed & are unremarkable except as noted in HPI and below PMFSH Past Medical History Medical History Encounter for Depo-Provera contraception Screen for STD (sexually transmitted disease) GERD (gastroesophageal reflux disease) Acne Surgical History Surgical History History of tonsillectomy Family History Family History (Updated 11/25/24 @ 08:30 by EMILI Mackey, ) Mother Family history non-contributory Social History Social History Smoking status: Former smoker Alcohol intake: never Substance use: never Substance use type: does not use Lack of Transportation: No Lack of Food: Never True Current Housing: I Have Housing Concerned About Future Housing: No Difficulty Paying Gas/Electric Bills: No Difficulty Paying for Meds: No Currently Unemployed: No Education: High School Diploma/GED Difficulty w/ Childcare or Family Care: No Living arrangements: other Additional living arrangements comments: single Occupation/Education: occupation 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 HEAD: normocephalic, atraumatic. EYES: PERRLA/EOMI, conjunctivae clear. NOSE: Normal no drainage EARS:TMS clear with good light reflex. THROAT: Pharynx clear, no exudate. NECK: Supple. No adenopathy, no masses. RESPIRATORY: Airway patent, respirations nonlabored. Clear to auscultation bilaterally, no rales, rhonchi, wheezing. CARDIOVASCULAR: Regular rate and rhythm without murmurs rubs or gallops. ABDOMINAL: Soft, nontender, nondistended, normal bowel sounds MUSCULOSKELETAL: Moves all extremities. Strength/ROM intact, No edema, No calf tenderness. NEURO: Alert. Cranial nerves II through XII intact. Good gait. Good coordination SKIN: Warm, dry. Normal Color Course Vital Signs Vital signs: Vital Signs Temperature 98.7 F 03/06/25 11:45 Pulse Rate 78 03/06/25 11:45 Respiratory Rate 18 03/06/25 11:45 Blood Pressure 119/79 03/06/25 11:45 Pulse Oximetry 95 03/06/25 11:45 Oxygen Delivery Room Air 03/06/25 11:45 Temperature 98.7 F 03/06/25 11:45 Pulse Rate 94 03/06/25 14:07 Respiratory Rate 19 03/06/25 14:07 Blood Pressure 103/63 03/06/25 14:07 Pulse Oximetry 100 03/06/25 14:07 Oxygen Delivery Room Air 03/06/25 11:56 Medical Decision Making [facility] Narrative Medical decision making narrative: 19-year-old female present to the emergency department for evaluation for intermittent shortness of breath. Patient's lungs are clear. Chest x-ray shows no acute cardiopulmonary malady. Patient was treated with a breathing treatment emergency department. Patient was discharged home with an additional albuterol inhaler. Differential Diagnosis Differential Diagnosis: COVID, RSV, influenza, pneumonia, asthma Vital Signs Vital Signs: Vital Signs Temperature 98.7 F 03/06/25 11:45 Pulse Rate 78 03/06/25 11:45 Respiratory Rate 18 03/06/25 11:45 Blood Pressure 119/79 03/06/25 11:45 Pulse Oximetry 95 03/06/25 11:45 Oxygen Delivery Room Air 03/06/25 11:45 Temperature 98.7 F 03/06/25 11:45 Pulse Rate 94 03/06/25 14:07 Respiratory Rate 19 03/06/25 14:07 Blood Pressure 103/63 03/06/25 14:07 Pulse Oximetry 100 03/06/25 14:07 Oxygen Delivery Room Air 03/06/25 11:56 Lab Data Labs: Lab Results 03/06/25 Range/Units 12:08 Influenza A (RT-PCR) Negative (Negative) Influenza B (RT-PCR) Negative (Negative) RSV (RT-PCR) Negative (Negative) SARS-CoV-2 RNA (RT-PCR) Negative (Negative) Imaging Data Radiologist's impression: Impressions Chest X-Ray 03/06/25 13:29 IMPRESSION: 1: NO ACUTE CARDIOPULMONARY DISEASE. Discharge Plan Discharge Clinical Impression: Acute dyspnea Patient Disposition: Home Condition: Stable Instructions: Antibiotic Form, How to Stop Smoking (ED) Additional Instructions: Albuterol inhaler as directed. Refrain from smoking. Have close follow-up with your primary care physician. If you have any worsening symptoms then please call or return to the emergency department. Patient Language: Urdu Prescriptions: New albuterol sulfate 90 mcg/actuation HFA aerosol inhaler 1 puff inhalation QID Qty: 6.7 0RF No Action hydroxyzine HCl 25 mg tablet 25 mg PO Q8H PRN (Reason: anxiety) sertraline 50 mg tablet 50 mg PO Q24H Follow-up/Referrals: Trever,Meek Moscoso MD [Primary Care Provider] -
[2025-03-06] MEDS: ALBUTEROL SULFATE NEB 2.5 MG/3 ML INH INHALATION (12:35)
[2025-03-06 12:51] LABS: Influenza A QL RT-PCR Negative (Negative); Influenza B QL RT-PCR Negative (Negative); RSV RNA, RT-PCR Negative (Negative); SARS-CoV-2 RNA PCR Negative (Negative)
[2025-03-06 14:07] VITALS: BP 103/63; PULSE 94; RESP 19; O2SAT 100
== END 2025-03-06 14:08 | disposition home or self-care (01) ==
PROVIDERS: Emergency Provider Emergency Medicine; PCP Family Medicine
DX: R06.00 Dyspnea, unspecified (principal); F12.90 Cannabis use, unspecified, uncomplicated; Z20.822 Contact with and (suspected) exposure to COVID-19
CPT/HCPCS: 71046; 87637; 94640; 99283

== ENCOUNTER 2025-06-13 08:21 | Emergency (ER) | payer OTHER, SELFPAY ==
[2025-06-13 08:28] VITALS: BP 110/62; PULSE 75; RESP 16; TEMP 36.6; O2SAT 100
--- NOTE | 2025-06-13 08:28 | ED_ITS ---
HPI - URI/Sore Throat General Chief Complaint: Upper Respiratory Infection Stated Complaint: Sore Throat/Runny Nose/Headache Time Seen by Provider: 06/13/25 08:30 History of Present Illness HPI Narrative: 20-year-old female presented for complaint of nasal congestion and sore throat with mild cough. Onset last night. Has not taken anything for symptoms. Denies shortness of breath, wheezing nausea vomiting diarrhea, body aches, fevers or chills. Related Data Home Medications ?Medication ?Instructions ?Recorded ?Confirmed ?Last Taken ?Type hydroxyzine HCl 25 mg tablet 25 mg PO Q8H PRN anxiety 03/06/25 03/06/25 Unknown History sertraline 50 mg tablet 50 mg PO Q24H 03/06/2503/06 Unknown History Allergies Allergy/AdvReac Type Severity Reaction Status Date / Time No Known Allergies Allergy Verified 06/13/25 08:25 Review of Systems Review of Systems: CONSTITUTIONAL: Denies body aches, fever, chills, or sweats. EYES: Denies visual changes, redness, or discharge. ENT: reports sore throat rhinorrhea, congestion, Denies otalgia. CARDIOVASCULAR: Denies chest pain, palpitations, or edema. RESPIRATORY: Denies dyspnea. GASTROINTESTINAL: Denies abdominal pain, nausea, vomiting, or diarrhea. SKIN: Denies rash NEUROLOGIC: Denies headache PMFSH Past Medical History Medical History Encounter for Depo-Provera contraception Screen for STD (sexually transmitted disease) GERD (gastroesophageal reflux disease) Acne Surgical History Surgical History History of tonsillectomy Family History Family History Mother Family history non-contributory Social History Social History Smoking status: Former smoker Alcohol intake: never Substance use: never Substance use type: does not use Lack of Transportation: No Lack of Food: Never True Current Housing: I Have Housing Concerned About Future Housing: No Difficulty Paying Gas/Electric Bills: No Difficulty Paying for Meds: No Currently Unemployed: No Education: High School Diploma/GED Difficulty w/ Childcare or Family Care: No Living arrangements: other Additional living arrangements comments: single Occupation/Education: occupation 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 EYES: conjunctivae clear ENT: Mucous membranes moist. TM pearly becerra with normal light reflex bilaterally; no tragal tenderness. Oropharynx not erythematous without lesions. Tonsils Absent. No drooling, no hoarseness, no trismus, uvula midline. No tripod positioning, hot potato voice, or soft palate swelling. NECK: Supple. No lymphadenopathy CHEST: Clear to auscultation, breath sounds equal. No respiratory distress, speaks in full sentences. HEART: Regular rate and rhythm. No murmur heard. SKIN: Warm, dry, no rash. NEURO: Alert and oriented x3. Course Course Emergency Course: Patient is aware of diagnosis, understands and agrees to treatment plan. Anticipatory guidance given. Patient agrees to follow-up as directed and is a candelario of reasons to seek care at the emergency department. Portions of this record may have been created with voice recognition software Level of Care: Express Care Visit Vital Signs Vital signs: Vital Signs Temperature 98 F 06/13/25 08:28 Pulse Rate 75 06/13/25 08:28 Respiratory Rate 16 06/13/25 08:28 Blood Pressure 110/62 06/13/25 08:28 Pulse Oximetry 100 06/13/25 08:28 Oxygen Delivery Room Air 06/13/25 08:28 Temperature 98 F 06/13/25 08:28 Pulse Rate 75 06/13/25 08:28 Respiratory Rate 16 06/13/25 08:28 Blood Pressure 110/62 06/13/25 08:28 Pulse Oximetry 100 06/13/25 08:28 Oxygen Delivery Room Air 06/13/25 08:28 MDM - URI/Sore Throat MDM Narrative Medical decision making narrative: neg COVID, flu, strep result reviewed with pt. Advise supportive treatments. Patient is appropriate for outpatient treatment and follow-up. Differential Diagnosis Differential diagnosis: Likely upper respiratory infection, viral infection and pharyngitis Discharge Plan Discharge Clinical Impression: Viral infection Patient Disposition: Home Condition: Stable Instructions: Antibiotic Form, Upper Respiratory Infection (ED) Additional Instructions: Your rapid covid/flu test was negative today. It may be too early to detect the virus, therefore we recommend retesting at home in 1-2 days Continue to follow general precautions: frequent handwashing, wear a mask, isolate/social distance, and avoid crowds if you have a fever. You must be fever free for 24 hours without the use of fever reducing medication (Tylenol/ibuprofen) before returning to work/school/crowds. Rapid strep swab was negative today You will be notified in a few days if the culture comes back positive for strep, and appropriate antibiotics will be called in at that time. if symptoms are due to a viral illness, it is not treated with antibiotics. Viral symptoms can be present for up to 10-14 days. Recommendations: Flonase spray and Zyrtec for sinus congestion Cough syrup may cause drowsiness; avoid driving or take it at night time. Tylenol every 8 hours as needed for pain/fever Soft foods, cool liquids, warm tea. Gargle with warm saltwater twice a day. Chloraseptic spray and throat lozenges. Rest and stay hydrated. --Follow up with your PCP --Go to the ER immediately if you cannot swallow your saliva, trouble breathing/wheezing, throat swelling, pain is persistent and severe Patient Language: Korean Prescriptions: No Action hydroxyzine HCl 25 mg tablet 25 mg PO Q8H PRN (Reason: anxiety) sertraline 50 mg tablet 50 mg PO Q24H albuterol sulfate 90 mcg/actuation HFA aerosol inhaler 1 puff inhalation QID Qty: 6.7 0RF Follow-up/Referrals: Trever,Meek Moscoso MD [Primary Care Provider, Unknown] Stand Alone Forms: Work/School Release IP
--- OUTSIDE RECORDS SUMMARY | 2025-06-13 08:45 | XMS_ITS | Clinical Summary ---
Author Organization [facility] Address [address] [place] [address] Care Team Providers Care Abstract Maker Name Role Phone No, Physician Unavailable Meek Perera MD Primary Care Provider Allergies No known active allergies Medications hydrOXYzine (ATARAX) 25 mg tabletIndications: anxiety Take 1 tablet (25 mg total) by mouth 3 (three) times a day as needed for anxiety 30 tablet 1 5 Active sertraline (ZOLOFT) 50 mg tabletIndications: Anxiety with Depression,General ized Anxiety Disorder Take 0.5 tablets (25 mg total) by mouth daily for 7 days, THEN 1 tablet (50 mg total) daily. 34 tablet 5 Active sertraline (ZOLOFT) 50 mg tabletIndications: CHASE (generalized anxiety disorder) Take 1 tablet (50 mg total) by mouth daily 30 tablet 3 5 04/27/20 26 Active rizatriptan (Maxalt) 10 mg tabletIndications: Migraine Take 1 tablet (10 mg total) by mouth once as needed for migraine for up to 36 doses May repeat in 2 hours if needed 9 tablet 3 5 Active methylphenidate ER (Concerta) 18 mg CR tabletIndications: Attention-Deficit Hyperactivity Disorder Take 1 tablet (18 mg total) by mouth every morning 30 tablet 5 Active albuterol HFA (PROVENTIL HFA,VENTOLIN HFA,PROAIR HFA) 90 mcg/actuation inhaler Inhale 2 puffs every 8 (eight) hours as needed for wheezing 1 each 3 5 03/30/20 26 Active Active Problems Problem Noted Date Diagnosed Date Migraine without aura and wi thout status migrainosus, not intractable 03/30/2025 Winging of scapula 12/28/2024 Palpitations 08/16/2024 Chest [...] sertraline. F/u 1 month. 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 I told her that she should be changing dressing daily. Silvadene prescribed to use on burn with daily dressing changes until healed. [facility] care 12/19/2022 11/29/2023 Assessment & [...] Encounters Date Type Department Care Team Description 03/30/2025 10:15 AM CDT Office Visit [facility] Primary Care at [address] [address] Meek Perera MD CHASE (generalized anxiety disorder) (Primary Dx); Migraine without aura and without status migrainosus, not intractable; Attention deficit hyperactivity disorder (ADHD), predominantly inattentive type from Last 3 Months Immunizations Immunization Administration [...] points, staff should administer the PHQ-9) 0 03/30/2025 Personal Safety Answer Date Recorded Have you [...] on file Legal Sex Female 1:23 AM SENIOR SOFTWARE ANALYST Gender Identity Not on file Sexual Orientation Not on file 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, 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 Not on file Not on fi le Obstetrics History Last Filed Vital Signs Vital Sign Reading Time Taken Comments Blood Pressure 90/60 03/30/2025 10:08 AM CDT Pulse 80 03/30/2025 10:08 AM CDT Temperature 36.5 C (97.7 F) 03/30/2025 10:08 AM CDT Respiratory Rate 14 03/30/2025 10:08 AM CDT Oxygen Saturation 98% 03/30/2025 10:08 AM CDT Inhaled Oxygen Concentration - - Weight 59.4 kg (131 lb) 03/30/2025 10:08 AM CDT Height 157.5 cm (5' 2) 03/30/2025 10:08 AM CDT Body Mass Index 23.96 03/30/2025 10:08 AM CDT Plan of Treatment Health Maintenance Due Date Last Done Comments Cervical Cancer Screening 2004 Hepatitis C Screening 2004 Meningococcal B Vaccine (2 o f 2 - Trumenba SCDM 2-dose series) 06/08/2021 12/06/2020 Regular Well Visit/Exam 18-64 12/17/2023 12/16/2022 DTaP/Tdap/Td Vaccine (7 - Td or Tdap) 06/03/2025 06/03/2015, 01/16/2009, 12/01/2005, Additional history exists Influenza Vaccine (#1) 2025 , 08/17/2018, 08/12/2016, Additional history exists Depression Screening 03/30/2026 03/30/2025, 12/28/2024, 01/26/2024, Additional history exists Hepatitis B Screening Completed 2004 , 2004, 2004 Pneumococcal vaccine <65 Completed 006, 2004, 2004, Additional history exists Varicella Vaccines Completed 02/12/2009, 06/09/2005 HPV Vaccines Completed 11/05/2014, 11/2013, 05/03/2014 Meningococcal Vaccine Completed 12/06/2020, [address] [facility] [address] [facility] [place] [address] [facility] [place] [address] [facility] WORK[employer] 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
[2025-06-13 08:53] LABS: EDCOVIDSCREEN Negative (Negative); EDINFLUASCREEN Negative (Negative); EDINFLUBSCREEN Negative (Negative); EDSTREPNEGPOS1 Negative (Negative)
== END 2025-06-13 08:54 | disposition home or self-care (01) ==
PROVIDERS: Emergency Provider Nurse Practitioner Family; PCP Family Medicine
DX: B34.9 Viral infection, unspecified (principal); Z20.822 Contact with and (suspected) exposure to COVID-19; K21.9 Gastro-esophageal reflux disease without esophagitis; Z87.891 Personal history of nicotine dependence
CPT/HCPCS: 87081; 87426; 87804; 87880; 99213; G0463